=== PATIENT | male | born 2000 | race Hispanic/Latino ===

== ENCOUNTER 2023-04-15 18:35 | Emergency (ER) | payer MEDICAID, OTHER ==
[~2023-04-15] VITALS: Ht 172.7 cm; Wt 127.0 kg
[2023-04-15 18:51] VITALS: BP 147/81; PULSE 100; RESP 18
[2023-04-15] MEDS ORDERED: CEPH500B PO (22:58)
== END 2023-04-15 23:44 | disposition home or self-care (01) ==
LOC: EDH 18:35
DX: S01.81XA Laceration without foreign body of other part of head, initial encounter (principal); S09.90XA Unspecified injury of head, initial encounter; F17.200 Nicotine dependence, unspecified, uncomplicated; Y04.8XXA Assault by other bodily force, initial encounter; Y93.89 Activity, other specified; Y92.89 Other specified places as the place of occurrence of the external cause; Y99.8 Other external cause status
CPT/HCPCS: 12011; 70486